=== PATIENT | female | born 1990 | race Caucasian/White ===

== ENCOUNTER 2018-01-26 10:22 | Emergency (ER) | payer OTHER ==
[2018-01-26 10:29] VITALS: BP 118/73; PULSE 74; TEMP 98.2; BMI 19.2
--- NOTE | 2018-01-26 10:51 | PDOC ---
History of Present Illness - General Chief Complaint: Cold Symptoms Stated Complaint: COLD SYMPTOMS Time Seen by Provider: 01/26/18 10:51 History Source: Patient Exam Limitations: No Limitations - History of Present Illness Initial Comments: 01/26/18 11:45 cough nasal congestion for 2 days no fever no shortness of breath Past History - Past Medical History Allergies/Adverse Reactions: Allergies Allergy/AdvReac Type Severity Reaction Status Date / Time cat dander Allergy Verified 01/26/18 10:26 Home Medications: Ambulatory Orders Albuterol Sulfate Inhaler - [Ventolin Hfa Inhaler -] 1 - 2 inh PO QID #1 inhaler 01/26/18 Aspirin/Acetaminophen/Caffeine [Excedrin Migraine Caplet] 1 each PO ASDIR Benzonatate [Tessalon Pearls -] 200 mg PO TID #42 cap 01/26/18 Fluticasone Prop 0.05% Nasal [Flonase -] 1 - 2 spray NS DAILY #1 spray.pump Pseudoephedrine HCl [Suphedrine Sinus Congestion] 30 mg PO ASDIR 01/26/18 COPD: No - Suicide/Smoking/Psychosocial Hx Smoking History: Current every day smoker Have you smoked in the past 12 months: No Information on smoking cessation initiated: No Hx Alcohol Use: No Drug/Substance Use Hx: No Substance Use Type: None *Physical Exam - Vital Signs Last Vital Signs Temp Pulse Resp BP Pulse Ox 98.2 F 74 18 118/73 99 01/26/18 10:27 01/26/18 10:27 01/26/18 10:27 01/26/18 10:27 01/26/18 10:27 - Physical Exam General Appearance: Yes: Nourished, Appropriately Dressed HEENT: positive: EOMI, MARY, Nasal Congestion, Rhinorrhea. negative: Pharyngeal Erythema Neck: positive: Supple. negative: Tender Respiratory/Chest: positive: Lungs Clear, Normal Breath Sounds, Rhonchi ( scattered ). negative: Chest Tender Cardiovascular: positive: Regular Rhythm, Regular Rate Gastrointestinal/Abdominal: positive: Normal Bowel Sounds, Soft Extremity: positive: Normal Capillary Refill, Normal Inspection, Normal Range of Motion Integumentary: positive: Normal Color, Dry, Warm Neurologic: positive: historical archeologist II-XII NML intact, Fully Oriented, Alert, Normal Mood/ Affect, Normal Response, Motor Strength 5/5 Medical Decision Making - Medical Decision Making 01/26/18 11:55 cc: cough nasal congestion clear runny nose pt is a smoker denies fever or chills vitals stable will give nebulizer pt improved after neb no wheezing lungs CLEAR no rhonchi now dc home supportive care pt agrees with plan all questions asked and answered *DC/Admit/Observation/Transfer Diagnosis at time of Disposition: Upper respiratory infection, viral - Discharge Dispostion Disposition: HOME Condition at time of disposition: Good - Prescriptions Prescriptions: Albuterol Sulfate Inhaler - [Ventolin Hfa Inhaler -] 1 - 2 inh PO QID #1 inhaler Benzonatate [Tessalon Pearls -] 200 mg PO TID #42 cap Fluticasone Prop 0.05% Nasal [Flonase -] 1 - 2 spray NS DAILY #1 spray.pump - Referrals - Patient Instructions Printed Discharge Instructions: DI for Viral Upper Respiratory Infection -- Adult Additional Instructions: drink pleanty of fluids increase vitamin C intake to boost immune system tea with honey and lemon use the medication as prescribed follow with your doctor or for follow up if any worsening symptoms return to the ER - Post Discharge Activity
[2018-01-26] MEDS ORDERED: ALBUTEROL SO4 2.5/IPRATROPIUM 0.5 INH SOL 3 ML VIAL.NEB. NEB ONE ×2 (11:00→11:06)
== END 2018-01-26 11:57 | disposition home or self-care (01) ==
LOC: JERFT 10:22
PROC: 3E0F7GC Introduction of Other Therapeutic Substance into Respiratory Tract, Via Natural or Artificial Opening (ICD-10-PCS; principal; 2018-01-26)
DX: J06.9 Acute upper respiratory infection, unspecified (principal); F17.210 Nicotine dependence, cigarettes, uncomplicated
CPT/HCPCS: 99281-25; J7620